=== PATIENT | male | born 1985 | race Caucasian/White ===

== ENCOUNTER 2019-01-13 10:54 | Outpatient (CLI) | payer OTHER ==
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
== END 2019-01-13 10:55 | disposition home or self-care (01) ==
LOC: BICRAD 10:54
PROVIDERS: ATTEND Family Medicine
DX: M79.672 Pain in left foot (principal)

== ENCOUNTER 2019-01-15 16:42 | Inpatient (IN) | payer OTHER ==
[~2019-01-15 16:42] MED LIST: ISOVUE-370 76%-LOCM 1 ML ONE
--- NOTE | 2019-01-15 17:35 | RAD ---
Left knee 4 views HISTORY: Left knee injury. FINDINGS: Joint spaces are preserved. No acute fracture, dislocation, or fluid distention of the supr apatellar bursa. Prominent soft tissue swelling over the anterior aspect of the knee and extending to the anterior portion of the lower thigh. Internal low density has the appearance of mixture of sub cutaneous fat and edema. No soft tissue gas is apparent. IMPRESSION: Prominent soft tissue swelling. No acute osseous abnormalities are demonstrated.
[2019-01-15 17:58] LABS: Hemoglobin 15.8 g/dL (14.0-18.0); Mean Corpuscular HGB CONC 33.3 g/dL (32.0-36.0); Mean Corpuscular Hemoglobin 29.1 pg (27.0-31.0); Mean Corpuscular Volume 87.4 fL (78.0-98.0); Mean Platelet Volume 10.3 fL (7.4-10.4); Platelet Count 209 thou/uL (130-400); RBC Distribution Width 11.4 % (11.5-14.5); Red Blood Cell (RBC) Count 5.42 mill/uL (4.70-6.10); White Blood Cell (WBC) Count 24.5 thou/uL (4.8-10.8)
[2019-01-15] MEDS ORDERED: Acetaminophen 500 MG TAB ONE (18:07)
[2019-01-15 18:18] LABS: Band 9 % (5-11); Lymphocytes 5 % (21-51); MDiff Complete? YES; Metamyelocyte 2 % (0-0); Monocytes 5 % (0-10); Neutrophil 77 % (42-75); Reactive Lymphocytes 2 % (0-10)
[2019-01-15 18:21] LABS: ALT (SGPT) 13 U/L (8-55); AST (SGOT) 10 U/L (5-34); Albumin 3.7 g/dL (3.5-5.0); Alkaline Phosphatase 91 U/L (40-110); Anion Gap 12 mmol/L (10-20); BUN (Urea Nitrogen) 14 mg/dL (8.9-20.6); Bilirubin, Total 1.9 mg/dL (0.2-1.2); Calc. Creatinine Clearance 0 mL/min (70-130); Calcium 9.2 mg/dL (7.8-10.44); Carbon Dioxide 26 mmol/L (22-29); Chloride 98 mmol/L (98-107); Estimated GFR-MDRD Greater than 90; Globulin 3.3 g/dL (2.4-3.5); Glucose 115 mg/dL (70-105); Potassium 3.8 mmol/L (3.5-5.1); Sodium 132 mmol/L (136-145)
[2019-01-15] MEDS ORDERED: Piperacillin/Tazobactam 4.5 GM VIAL ONE (18:21)
--- NOTE | 2019-01-15 19:01 | CT ---
Exam: Left lower extremity CT scan with IV contrast: HISTORY: Marked soft tissue swelling of the leg around the knee. Infection cellulitis FINDINGS: There is very extensive superficial subcutaneous fat stranding and extensive superficial subcutaneous fluid evidence for extensive edema and/or cellulitis. In addition there is also very marked diffuse superficial fasciitis circumferentially involving the leg from the visualized mid thigh throu gh the knee region and into the visualized upper calf regions of the lower leg. There are more focal fluid collections in the superficial infrapatellar region this could represent focal cellulitis and possibly extensive superficial infrapatellar bursitis. No evidence for deep intramuscular abscess or intramuscular abnormal gas or abnormal gas within the more superficial soft tissues. No si gnificant osseous abnormality. No abnormal knee joint effusion. IMPRESSION: Very extensive superficial soft tissue swelling evidence for extensive cellulitis. Very extensive superficial fasciitis involving the lower thigh, knee, and upper calf regions. No evidence for deep intramuscular abscess or abnormal fluid collection. No evidence for abnormal gas within the soft tissues. No significant bony abnormality. Superficial pr epatellar edema or cellulitis and fluid density could represent extensive bursitis as well.
[2019-01-15] MEDS ORDERED: Ketorolac Tromethamine 30 MG/ML VIAL ONE (19:44)
[2019-01-15] MEDS ORDERED: Sodium Chloride 0.9% 1,000 ML IV SCH (20:10)
[2019-01-15] MEDS ORDERED: HYDROcodone/Acetaminophen 5/325 mg Tablet PO PRN ×2 (20:10)
[2019-01-15] MEDS ORDERED: Ondansetron ODT 4 MG TAB SL PRN (20:10)
[2019-01-15] MEDS ORDERED: Acetaminophen 325 MG TAB PO PRN (20:10)
[2019-01-15] MEDS ORDERED: Ondansetron PF 4 MG/2 ML Vial IVP PRN (20:10)
[2019-01-15] MEDS ORDERED: Calcium Carbonate 500 MG ChewTAB PO PRN (20:25)
[2019-01-15 20:30] VITALS: BMI 34.7
[2019-01-15] MEDS ORDERED: Vancomycin HCl 1 GM in Premix Bag 1 BAG IVPB SCH (21:00)
[2019-01-15] MEDS: Famotidine 20 MG TAB PO SCH (21:25)
[2019-01-15] MEDS: Ibuprofen 200 MG TAB PO PRN (21:25)
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
[2019-01-15] MEDS: Piperacillin/Tazobactam 3.375 GM in Sodium Chloride 0.9% 100 ML IVPB SCH (23:26)
[2019-01-16] MEDS ORDERED: Piperacillin/Tazobactam 4.5 GM in Sodium Chloride 0.9% 100 ML IVPB SCH (02:00)
[2019-01-16] MEDS: Vancomycin HCl 1.75 GM in Sodium Chloride 0.9% 500 ML IVPB SCH ×2 (03:27→12:33)
[2019-01-16] MEDS: Piperacillin/Tazobactam 3.375 GM in Sodium Chloride 0.9% 100 ML IVPB SCH ×2 (05:12→11:45)
[2019-01-16] MEDS: HYDROcodone/Acetaminophen 5/325 mg Tablet PO PRN ×2 (05:14→11:43)
[2019-01-16] MEDS: Ibuprofen 200 MG TAB PO PRN ×2 (05:15→20:27)
[2019-01-16 06:43] LABS: Anion Gap 10 mmol/L (10-20); BUN (Urea Nitrogen) 14 mg/dL (8.9-20.6); Calc. Creatinine Clearance 222 mL/min (70-130); Calcium 8.3 mg/dL (7.8-10.44); Carbon Dioxide 23 mmol/L (22-29); Chloride 102 mmol/L (98-107); Estimated GFR-MDRD Greater than 90; Glucose 122 mg/dL (70-105); Potassium 3.9 mmol/L (3.5-5.1); Sodium 131 mmol/L (136-145)
[2019-01-16 06:52] LABS: Band 16 % (5-11); Hemoglobin 13.6 g/dL (14.0-18.0); Lymphocytes 2 % (21-51); MDiff Complete? YES; Mean Corpuscular HGB CONC 33.1 g/dL (32.0-36.0); Mean Corpuscular Volume 87.7 fL (78.0-98.0); Mean Platelet Volume 10.2 fL (7.4-10.4); Monocytes 12 % (0-10); Neutrophil 70 % (42-75); Platelet Count 190 thou/uL (130-400); RBC Distribution Width 11.4 % (11.5-14.5); Red Blood Cell (RBC) Count 4.68 mill/uL (4.70-6.10); White Blood Cell (WBC) Count 18.8 thou/uL (4.8-10.8)
[2019-01-16] MEDS ORDERED: FLU VACC QS2019-20(6MOS UP)/PF 60 MCG/0.5 ML SYRINGE IM ONE (09:00)
[2019-01-16] MEDS: Famotidine 20 MG TAB PO SCH ×2 (09:15→20:28)
[2019-01-16] MEDS: Saccharomyces boulardii 250 MG CAP PO SCH (09:15)
[2019-01-16] MEDS: Enoxaparin Sodium 40 MG/0.4 ML SYRINGE SC SCH (09:16)
[2019-01-16] MEDS: Ondansetron PF 4 MG/2 ML Vial IVP PRN ×2 (09:20→20:32)
[2019-01-16] MEDS: Morphine 4 MG/ML VIAL SLOW IVP PRN ×2 (12:43→19:03)
[2019-01-16] MEDS: HYDROcodone/Acetaminophen 7.5/325 mg Tablet PO PRN ×2 (17:30→22:19)
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
[2019-01-16 19:34] LABS: Vancomycin, Trough 10.2 ug/mL
--- NOTE | 2019-01-16 20:16 | PDOC.HOSPP ---
- Subjective Encounter Date: 01/16/19 Encounter Time: 11:30 Subjective: pt up in bed complains of pain to his left knee. - Objective Vital Signs & Weight: Vital Signs (12 hours) Temp Pulse Resp BP Pulse Ox 01/16/19 16:00 99.8 F H 108 H 20 110/68 95 01/16/19 11:36 97.8 F 97 18 110/76 98 01/16/19 09:25 96 Weight Admit Weight 270 lb 5.92 oz Weight 270 lb 5.92 oz I&O: 01/15/19 01/16/19 01/17/19 06:59 06:59 06:59 Intake Total 1850 2290 Output Total 1325 Balance 1850 965 Result Diagrams: 01/16/19 06:14 01/16/19 06:14 Hospitalist ROS - Review of Systems Respiratory: denies: cough, dry, shortness of breath, hemoptysis, SOB with excertion, pleuritic pain, sputum, wheezing, other Cardiovascular: denies: chest pain, palpitations, orthopnea, paroxysmal noc. dyspnea, edema, light headedness, other Musculoskeletal: reports: leg pain - Medication Medications: Active Medications Generic Name Dose Route Start Last Admin Trade Name Freq PRN Reason Stop Dose Admin Hydrocodone Bitart/Acetaminophen 2 tab 01/16/19 12:15 01/16/19 17:30 [place] 7.5/325 PO 2 tab Q4H PRN Administration Moderate Pain (4-6) Enoxaparin Sodium 40 mg 01/16/19 09:00 01/16/19 09:16 Lovenox SC 40 mg 0900 ROSHAN Administration Famotidine 20 mg 01/15/19 21:00 01/16/19 09:15 Pepcid PO 20 mg BID ROSHAN Administration Ibuprofen 400 mg 01/15/19 20:25 01/16/19 05:15 Motrin PO 400 mg Q4H PRN Administration Fever > 101 Morphine Sulfate 4 mg 01/16/19 12:15 01/16/19 19:03 Morphine SLOW IVP 4 mg Q4H PRN Administration Mild-Moderate Pain (1-5) Ondansetron HCl 4 mg 01/15/19 20:25 01/16/19 09:20 Zofran IVP 4 mg Q6H PRN Administration Nausea/Vomiting Saccharomyces Boulardii 250 mg 01/16/19 09:00 01/16/19 09:15 Florastor PO 250 mg DAILY ROSHAN Administration Sodium Chloride 10 ml 01/16/19 12:18 01/16/19 12:45 Flush - Normal Saline IVF 10 ml PRN PRN Administration Saline Flush - Exam Neck: negative: supple, symmetric, no JVD, no thyromegaly, no lymphadenopathy, no carotid bruit, JVD Heart: negative: RRR, no murmur, no gallops, no rubs, normal peripheral pulses, irregular, diminshed peripheral pulses, murmur present, II/IV, III/IV Respiratory: negative: CTAB, no wheezes, no rales, no ronchi, normal chest expansion, no tachypnea, normal percussion, rales, rhonchi, tachypneic, wheezes Hosp A/P (1) Cellulitis Code(s): L03.90 - CELLULITIS, UNSPECIFIED Status: Acute (2) Fasciitis Code(s): M72.9 - FIBROBLASTIC DISORDER, UNSPECIFIED Status: Acute - Plan will consult ID, will continue broad spectrum abx for now. may need surgical debridement.
[2019-01-17] MEDS: HYDROcodone/Acetaminophen 7.5/325 mg Tablet PO PRN ×2 (04:06→12:19)
[2019-01-17] MEDS: Saccharomyces boulardii 250 MG CAP PO SCH (09:18)
[2019-01-17] MEDS: Enoxaparin Sodium 40 MG/0.4 ML SYRINGE SC SCH (09:18)
[2019-01-17] MEDS: Famotidine 20 MG TAB PO SCH ×2 (09:24→20:35)
--- NOTE | 2019-01-17 12:44 | PDOC.HOSPP ---
- Subjective Encounter Date: 01/17/19 Encounter Time: 11:45 Subjective: pt feels his left leg erythema is worsening. however overall he feels better. - Objective Vital Signs & Weight: Vital Signs (12 hours) Temp Pulse Resp BP Pulse Ox 01/17/19 08:31 99.5 F 92 16 120/89 97 Weight Admit Weight 270 lb 5.92 oz Weight 270 lb 5.92 oz I&O: 01/16/19 01/17/19 01/18/19 06:59 06:59 06:59 Intake Total 1850 4030 Output Total 2900 Balance 1850 1130 Result Diagrams: 01/16/19 06:14 01/16/19 06:14 Hospitalist ROS - Review of Systems Cardiovascular: denies: chest pain, palpitations, orthopnea, paroxysmal noc. dyspnea, edema, light headedness, other Musculoskeletal: reports: other (erythema to left groin and edema) - Medication Medications: Active Medications Generic Name Dose Route Start Last Admin Trade Name Freq PRN Reason Stop Dose Admin Hydrocodone Bitart/Acetaminophen 2 tab 01/16/19 12:15 01/17/19 12:19 [place] 7.5/325 PO 2 tab Q4H PRN Administration Moderate Pain (4-6) Enoxaparin Sodium 40 mg 01/16/19 09:00 01/17/19 09:18 Lovenox SC 40 mg 0900 ROSHAN Administration Famotidine 20 mg 01/15/19 21:00 01/17/19 09:24 Pepcid PO 20 mg BID ROSHAN Administration Vancomycin HCl 2 gm/ Sodium 500 mls @ 250 mls/hr 01/16/19 20:00 01/17/19 04: 08 Chloride IVPB 500 mls 0400,1200,2000 ROSHAN Administration Ibuprofen 400 mg 01/15/19 20:25 01/16/19 20:27 Motrin PO 400 mg Q4H PRN Administration Fever > 101 Morphine Sulfate 4 mg 01/16/19 12:15 01/16/19 19:03 Morphine SLOW IVP 4 mg Q4H PRN Administration Mild-Moderate Pain (1-5) Ondansetron HCl 4 mg 01/15/19 20:25 01/16/19 20:32 Zofran IVP 4 mg Q6H PRN Administration Nausea/Vomiting Saccharomyces Boulardii 250 mg 01/16/19 09:00 01/17/19 09:18 Florastor PO 250 mg DAILY ROSHAN Administration Sertraline HCl 50 mg 01/17/19 09:00 01/17/19 09:19 Zoloft PO 50 mg DAILY ROSHAN Administration Sodium Chloride 10 ml 01/16/19 21:00 01/17/19 12:11 Flush - Normal Saline IVF Not Given Q12HR ROSHAN Sodium Chloride 10 ml 01/16/19 12:18 01/16/19 12:45 Flush - Normal Saline IVF 10 ml PRN PRN Administration Saline Flush - Exam Neck: negative: supple, symmetric, no JVD, no thyromegaly, no lymphadenopathy, no carotid bruit, JVD Heart: negative: RRR, no murmur, no gallops, no rubs, normal peripheral pulses, irregular, diminshed peripheral pulses, murmur present, II/IV, III/IV Respiratory: negative: CTAB, no wheezes, no rales, no ronchi, normal chest expansion, no tachypnea, normal percussion, rales, rhonchi, tachypneic, wheezes Extremities: 1+ LE edema Extremities - other findings: mild eryhtema to his left groin Hosp A/P (1) Cellulitis Code(s): L03.90 - CELLULITIS, UNSPECIFIED Status: Acute (2) Fasciitis Code(s): M72.9 - FIBROBLASTIC DISORDER, UNSPECIFIED Status: Acute - Plan will consult ID, will continue broad spectrum abx for now. may need surgical debridement. 01/17 pt does have significant edema to his left thigh but his erythema has improved. I did advise him to elevate his left leg higher. He is on broad spectrum abx. will consider testing if his left leg swelling and erythema does not improve.
--- NOTE | 2019-01-17 13:14 | PRG ---
DATE OF SERVICE: 01/17/2019 SUBJECTIVE: Still with quite a bit of pain, and redness is worsened in the prepatellar region. Had some difficulty urination yesterday. No respiratory symptoms or abdominal pain. OBJECTIVE: VITAL SIGNS: T-max 99.8. Other vital signs are normal. GENERAL: Awake, alert, oriented. LUNGS: Clear. HEART: S1 and S2. Regular rate. EXTREMITIES: Left leg with still persistent erythema in the prepatellar region. Swelling. LABORATORY DATA: White cell count is at 18.8, hemoglobin 13.6, platelets 190. Creatinine 0.83. Microbiology with MRSA. ASSESSMENT AND DISCUSSION: Abscess and cellulitis at the left prepatellar area, likely prepatellar bursitis. We will consult Surgery. Job ID: [id number]
[2019-01-17 14:04] LABS: Hemoglobin 12.4 g/dL (14.0-18.0); Mean Corpuscular HGB CONC 33.5 g/dL (32.0-36.0); Mean Corpuscular Hemoglobin 29.6 pg (27.0-31.0); Mean Corpuscular Volume 88.2 fL (78.0-98.0); Platelet Count 214 thou/uL (130-400); RBC Distribution Width 11.3 % (11.5-14.5); Red Blood Cell (RBC) Count 4.19 mill/uL (4.70-6.10); White Blood Cell (WBC) Count 16.1 thou/uL (4.8-10.8)
[2019-01-17 14:30] LABS: Band 10 % (5-11); Lymphocytes 4 % (21-51); MDiff Complete? YES; Monocytes 3 % (0-10); Neutrophil 83 % (42-75); Platelet Morphology Comment Appears Adequate
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
[2019-01-17] MEDS: Sodium Chloride 0.9% 1,000 ML IV SCH ×2 (15:46→20:39)
[2019-01-17] MEDS ORDERED: Ondansetron PF 4 MG/2 ML Vial ONE (18:00)
[2019-01-17] MEDS ORDERED: Lidocaine 1% PF 5 ML VIAL ONE (18:00)
[2019-01-17] MEDS ORDERED: Ketorolac Tromethamine 30 MG/ML VIAL ONE (18:00)
[2019-01-17] MEDS ORDERED: Dexamethasone 20 MG/5 ML VIAL ONE (18:00)
[2019-01-17] MEDS ORDERED: PROPOFOL 200 MG/20 ML VIAL ONE (18:00)
[2019-01-17] MEDS ORDERED: HYDROmorphone 0.5 MG/0.5 ML SYRINGE ONE (18:14)
[2019-01-17] MEDS ORDERED: HYDROmorphone 2 MG/ML VIAL SLOW IVP PRN (19:03)
[2019-01-17] MEDS ORDERED: Promethazine HCl 25 MG/ML VIAL SLOW IVP PRN (19:03)
[2019-01-17] MEDS ORDERED: Ondansetron HCl/PF 4 MG/2 ML Vial IVP PRN (19:03)
[2019-01-17] MEDS ORDERED: Promethazine HCl 25 MG/ML VIAL IM PRN (19:03)
[2019-01-17] MEDS ORDERED: PACU-Morphine 4MG/ML VIAL SLOW IVP PRN (19:03)
[2019-01-17] MEDS ORDERED: Fentanyl 100 MCG/2 ML VIAL SLOW IVP PRN (19:14)
[2019-01-17 20:08] LABS: Vancomycin, Trough 13.4 ug/mL
[2019-01-17] MEDS: HYDROcodone/Acetaminophen 10/325 mg Tablet PO PRN (20:33)
[2019-01-18 08:15] LABS: #Lymphocytes 0.6 thou/uL (1.20-3.40); #Monocytes 0.9 thou/uL (0.11-0.59); #Neutrophils 16.3 thou/uL (1.40-6.50); %Basophils 0.1 % (0.0-1.0); %Eosinophils 0.1 % (0.0-10.0); %Lymphocytes 3.3 % (21.0-51.0); %Monocytes 4.8 % (0.0-10.0); %Neutrophils 91.7 % (42.0-75.0); Hemoglobin 11.9 g/dL (14.0-18.0); Mean Corpuscular HGB CONC 33.2 g/dL (32.0-36.0); Mean Corpuscular Hemoglobin 29.4 pg (27.0-31.0); Mean Corpuscular Volume 88.5 fL (78.0-98.0); Mean Platelet Volume 9.9 fL (7.4-10.4); Platelet Count 247 thou/uL (130-400); RBC Distribution Width 11.4 % (11.5-14.5); Red Blood Cell (RBC) Count 4.05 mill/uL (4.70-6.10); White Blood Cell (WBC) Count 17.7 thou/uL (4.8-10.8)
[2019-01-18 08:29] LABS: Anion Gap 9 mmol/L (10-20); BUN (Urea Nitrogen) 14 mg/dL (8.9-20.6); Calc. Creatinine Clearance 252 mL/min (70-130); Calcium 8.5 mg/dL (7.8-10.44); Carbon Dioxide 28 mmol/L (22-29); Chloride 102 mmol/L (98-107); Estimated GFR-MDRD Greater than 90; Glucose 135 mg/dL (70-105); Potassium 3.7 mmol/L (3.5-5.1); Sodium 135 mmol/L (136-145)
[2019-01-18] MEDS: Morphine 4 MG/ML VIAL SLOW IVP PRN (08:45)
[2019-01-18] MEDS: HYDROcodone/Acetaminophen 10/325 mg Tablet PO PRN (09:46)
[2019-01-18] MEDS: Saccharomyces boulardii 250 MG CAP PO SCH (09:49)
[2019-01-18] MEDS: Famotidine 20 MG TAB PO SCH ×2 (09:49→21:42)
[2019-01-18] MEDS: Enoxaparin Sodium 40 MG/0.4 ML SYRINGE SC SCH (09:50)
[2019-01-18] MEDS ORDERED: LIDOCAINE HCL 4% Topical Sol (4 ML SOLN.PK.G.) TP PRN (10:09)
--- NOTE | 2019-01-18 10:40 | PRG ---
DATE OF SERVICE: 01/18/2019 SUBJECTIVE: Albino is a 33-year-old male, who is postop day #1 from a left knee septic prepatellar bursitis. Apparently, he has MRSA and Dr. Cohn removed approximately 100 mL of the patient's prepatellar bursa. He feels a little better, but he feels as though the erythema has advanced slightly. OBJECTIVE: VITAL SIGNS: Temperature 98.4, pulse 92, respiratory rate 16 and nonlabored, O2 saturation 97% on room air, and blood pressure 129/72. GENERAL: He is alert, appropriate, responsive with examiner. EXTREMITIES: Visual inspection of the left lower extremity demonstrates him to have erythema extending up on the medial mid thigh up towards the groin and also dorsal mid thigh and blanches with pressure. He has some swelling distal to his wound, but there is no strike through. Wound Care is placed a VAC over the bursa. IMPRESSION: 1. Left knee methicillin-resistant Staphylococcus aureus septic prepatellar bursitis, status post incision and drainage just over 12 hours. 2. Persistent cellulitis, left thigh. PLAN: 1. We will add some topical lidocaine to the orders for wound care. 2. Demarcation of the erythema, so we can re-evaluate in 24 hours. 3. Continue IV antibiotics per Dr. Carter and re-evaluate tomorrow morning. Give consideration to reexploration if the erythema is not resolving or responding to antibiotics. Job ID: [id number]
--- NOTE | 2019-01-18 11:05 | OP ---
DATE OF PROCEDURE: 01/17/2019 PREOPERATIVE DIAGNOSIS: Prepatellar bursitis, septic, left knee. POSTOPERATIVE DIAGNOSIS: Prepatellar bursitis, septic, left knee. PROCEDURE PERFORMED: Irrigation and debridement of left septic prepatellar bursa. ANESTHESIA: General. SPECIMENS: Culture. DRAINS: None. COMPLICATIONS: None. BLOOD LOSS: About 20. DESCRIPTION OF PROCEDURE: The patient was taken to the operating room, where general anesthesia was induced. The left leg was prepped and draped in usual sterile fashion. He was already on scheduled vancomycin preoperatively. I made a longitudinal incision through the abrasions and poor skin on the anterior aspect of the knee. This was an obvious site of entry for the infection. A geyser of pus erupted, probably about 200 mL of very thick pus. It appeared to be probably an infected hematoma of the bursa. I then probed the bursa and broke up loculations, debrided the tissue and excised the bursal tissue, and used pulsatile lavage irrigation to further clean the bursa. The bursa was then packed with a Kerlix roll. POSTOPERATIVE PLAN: He is to continue vancomycin, pending cultures and a wound VAC will be applied by Wound Care tomorrow. Job ID: [id number]
[2019-01-18] MEDS ORDERED: Polyethylene Glycol 3350 17 GM Packet PO PRN (11:24)
[2019-01-18] MEDS ORDERED: Milk Of Magnesia 30 ML UDCUP PO PRN (11:25)
--- NOTE | 2019-01-18 14:54 | PRG ---
DATE OF SERVICE: 01/18/2019 SUBJECTIVE: The patient had I and D by Dr. Cohn. 200 mL of purulent exudate retrieved from the site. The patient has a negative pressure dressing at this time. He already feels improvement in the pain and swelling. He denies any headaches. No shortness of breath or chest pain. No abdominal pain or diarrhea. No genitourinary symptoms. No joint symptoms outside the area of involvement. OBJECTIVE: VITAL SIGNS: Normal. GENERAL: The patient has negative pressure dressing in the left prepatellar region. The erythema has receded already. LUNGS: Clear. HEART: S1, S2, regular rate. ABDOMEN: Soft, not distended, nontender. No ascites. No bladder distention. NEUROLOGIC: Nonfocal. LABORATORY DATA: White cell count is 17.7, hemoglobin 11, platelets 247. Sodium 135, creatinine 0.73. Microbiology with MRSA and patient is on vancomycin. ASSESSMENT: Abscess, prepatellar region, status post debridement by Dr. Cohn, has negative pressure dressing and we will wait on final progress of the lesion before we decide on IV versus oral antimicrobial therapy for discharge planning. Since he has not been documented to have been bacteremic, will be eligible for oral antimicrobial therapy for discharge planning depending on progress. Job ID: [id number]
[2019-01-18] MEDS: Sodium Chloride 0.9% 1,000 ML IV SCH (16:48)
[2019-01-18 19:45] LABS: Vancomycin, Trough 13.4 ug/mL
[2019-01-18] MEDS: Senokot S 8.6-50 MG TAB PO SCH (21:42)
[2019-01-19] MEDS: Sodium Chloride 0.9% 1,000 ML IV SCH ×3 (04:57→08:27)
--- NOTE | 2019-01-19 07:27 | PDOC.HOSPP ---
- Subjective Encounter Date: 01/18/19 Encounter Time: 09:30 Subjective: Patient seen and examined for L knee prepatellar abscess with cellulitis. Pain controlled. Feeling better. No other complaints. No overnight events - Objective Vital Signs & Weight: Vital Signs (12 hours) Temp Pulse Resp BP Pulse Ox 01/18/19 20:00 98.5 F 99 20 126/80 94 L 01/18/19 19:42 94 L Weight Admit Weight 270 lb 5.92 oz Weight 270 lb 5.92 oz I&O: 01/18/19 01/19/19 01/20/19 06:59 06:59 06:59 Intake Total 2220 5620 Output Total 1650 3800 Balance 570 1820 Result Diagrams: 01/18/19 07:58 01/18/19 07:58 Additional Labs: Microbiology 01/15/19 22:20 Knee - Wound Bacterial Culture - Final Methicillin resistant S.aureus 01/17/19 18:58 Knee Bacterial Culture - Preliminary 01/17/19 18:58 Knee Anaerobic Culture - Preliminary 01/15/19 17:40 Venous blood - Left Arm Blood Culture - Preliminary NO GROWTH AT 48 HOURS 01/15/19 17:31 Venous blood - Right Arm Blood Culture - Preliminary NO GROWTH AT 48 HOURS Hospitalist ROS - Review of Systems Respiratory: denies: cough, dry, shortness of breath, hemoptysis, SOB with excertion, pleuritic pain, sputum, wheezing, other Cardiovascular: denies: chest pain, palpitations, orthopnea, paroxysmal noc. dyspnea, edema, light headedness, other - Medication Medications: Active Medications Generic Name Dose Route Start Last Admin Trade Name Freq PRN Reason Stop Dose Admin Hydrocodone Bitart/Acetaminophen 2 tab 01/17/19 19:14 01/18/19 09:46 [place] 10/325 PO 2 tab Q4H PRN Administration Severe Pain (7-10) Enoxaparin Sodium 40 mg 01/16/19 09:00 01/18/19 09:50 Lovenox SC 40 mg 0900 ROSHAN Administration Famotidine 20 mg 01/15/19 21:00 01/18/19 21:42 Pepcid PO 20 mg BID ROSHAN Administration Vancomycin HCl 2 gm/ Sodium 500 mls @ 250 mls/hr 01/16/19 20:00 01/19/19 04: 58 Chloride IVPB 500 mls 0400,1200,2000 ROSHAN Administration Sodium Chloride 1,000 mls @ 100 mls/hr 01/17/19 13:45 01/19/19 04:58 Normal Saline 0.9% IV 1,000 mls .Q10H ROSHAN Administration Ibuprofen 400 mg 01/15/19 20:25 01/16/19 20:27 Motrin PO 400 mg Q4H PRN Administration Fever > 101 Morphine Sulfate 4 mg 01/16/19 12:15 01/18/19 08:45 Morphine SLOW IVP 4 mg Q4H PRN Administration Mild-Moderate Pain (1-5) Ondansetron HCl 4 mg 01/15/19 20:25 01/16/19 20:32 Zofran IVP 4 mg Q6H PRN Administration Nausea/Vomiting Polyethylene Glycol 17 gm 01/18/19 11:24 01/18/19 13:29 Miralax PO 17 gm DAILY PRN Administration Constipation Saccharomyces Boulardii 250 mg 01/16/19 09:00 01/18/19 09:49 Florastor PO 250 mg DAILY ROSHAN Administration Senna/Docusate Sodium 2 tab 01/18/19 21:00 01/18/19 21:42 Senokot S PO 2 tab BID ROSHAN Administration Sertraline HCl 50 mg 01/17/19 09:00 01/18/19 09:49 Zoloft PO 50 mg DAILY ROSHAN Administration Sodium Chloride 10 ml 01/16/19 21:00 01/18/19 21:42 Flush - Normal Saline IVF Not Given Q12HR ROSHAN Sodium Chloride 10 ml 01/16/19 12:18 01/16/19 12:45 Flush - Normal Saline IVF 10 ml PRN PRN Administration Saline Flush - Exam General Appearance: NAD Heart: RRR, no gallops Respiratory: CTAB, no rales Gastrointestinal: soft, non-distended Extremities: no edema Hosp A/P - Plan Sepsis due to L knee prepatellar abscess with cellulitis (MRSA +) Hyponatremia Abn LFTs ?etio Obesity BMI 34.7 Anxiety PLAN: Cont IV Vancomycin Cont wound care Ambulate Cont other meds Labs Q48hr
[2019-01-19] MEDS: Senokot S 8.6-50 MG TAB PO SCH (08:26)
[2019-01-19] MEDS: Enoxaparin Sodium 40 MG/0.4 ML SYRINGE SC SCH (08:26)
[2019-01-19] MEDS: Saccharomyces boulardii 250 MG CAP PO SCH (08:26)
[2019-01-19] MEDS ORDERED: Senokot S 8.6-50 MG TAB PO PRN (12:45)
--- NOTE | 2019-01-19 12:46 | PDOC.HOSPP ---
- Subjective Encounter Date: 01/19/19 Encounter Time: 12:45 Subjective: Patient seen and examined for Sepsis. Pain controlled. Had BM. No new complaints. No overnight events - Objective Vital Signs & Weight: Vital Signs (12 hours) Temp Pulse Resp BP Pulse Ox 01/19/19 12:00 97.8 F 88 18 137/87 99 01/19/19 08:00 98.2 F 96 18 142/84 H 99 Weight Admit Weight 270 lb 5.92 oz Weight 270 lb 5.92 oz I&O: 01/18/19 01/19/19 01/20/19 06:59 06:59 06:59 Intake Total 2220 5620 360 Output Total 1650 3800 Balance 570 1820 360 Result Diagrams: 01/18/19 07:58 01/18/19 07:58 Hospitalist ROS - Review of Systems Respiratory: denies: cough, dry, shortness of breath, hemoptysis, SOB with excertion, pleuritic pain, sputum, wheezing, other Cardiovascular: denies: chest pain, palpitations, orthopnea, paroxysmal noc. dyspnea, edema, light headedness, other - Medication Medications: Active Medications Generic Name Dose Route Start Last Admin Trade Name Freq PRN Reason Stop Dose Admin Hydrocodone Bitart/Acetaminophen 2 tab 01/17/19 19:14 01/18/19 09:46 [place] 10/325 PO 2 tab Q4H PRN Administration Severe Pain (7-10) Enoxaparin Sodium 40 mg 01/16/19 09:00 01/19/19 08:26 Lovenox SC 40 mg 0900 ROSHAN Administration Vancomycin HCl 2 gm/ Sodium 500 mls @ 250 mls/hr 01/16/19 20:00 01/19/19 12: 27 Chloride IVPB 500 mls 0400,1200,2000 ROSHAN Administration Sodium Chloride 1,000 mls @ 50 mls/hr 01/19/19 07:30 01/19/19 08:27 Normal Saline 0.9% IV Not Given .Q20H ROSHAN Ibuprofen 400 mg 01/15/19 20:25 01/16/19 20:27 Motrin PO 400 mg Q4H PRN Administration Fever > 101 Morphine Sulfate 4 mg 01/16/19 12:15 01/18/19 08:45 Morphine SLOW IVP 4 mg Q4H PRN Administration Mild-Moderate Pain (1-5) Ondansetron HCl 4 mg 01/15/19 20:25 01/16/19 20:32 Zofran IVP 4 mg Q6H PRN Administration Nausea/Vomiting Polyethylene Glycol 17 gm 01/18/19 11:24 01/18/19 13:29 Miralax PO 17 gm DAILY PRN Administration Constipation Saccharomyces Boulardii 250 mg 01/16/19 09:00 01/19/19 08:26 Florastor PO 250 mg DAILY ROSHAN Administration Senna/Docusate Sodium 2 tab 01/18/19 21:00 01/19/19 08:26 Senokot S PO 2 tab BID ROSHAN Administration Sertraline HCl 50 mg 01/17/19 09:00 01/19/19 08:26 Zoloft PO 50 mg DAILY ROSHAN Administration Sodium Chloride 10 ml 01/16/19 21:00 01/19/19 08:37 Flush - Normal Saline IVF Not Given Q12HR ROSHAN Sodium Chloride 10 ml 01/16/19 12:18 01/16/19 12:45 Flush - Normal Saline IVF 10 ml PRN PRN Administration Saline Flush - Exam General Appearance: NAD Heart: RRR, no gallops, no rubs Respiratory: CTAB, no wheezes, no ronchi Gastrointestinal: soft, non-tender, non-distended, normal bowel sounds Extremities: no edema Extremities - other findings: wound vac + Hosp A/P - Plan DVT proph w/SCDs Sepsis due to L knee prepatellar abscess with cellulitis (MRSA +) s/p drainage Hyponatremia Abn LFTs ?etio Obesity BMI 34.7 Anxiety PLAN: Cont IV Vancomycin Monitor Vancomycin level Cont wound care Ambulate Cont other meds DC Lovenox - Patient ambulating AM labs
--- NOTE | 2019-01-19 16:43 | PRG ---
DATE OF SERVICE: 01/19/2019 SUBJECTIVE: Feeling better. Less pain in left lower extremity. No respiratory symptoms, abdominal pain, or diarrhea. No genitourinary symptoms. OBJECTIVE: VITAL SIGNS: Normal. LUNGS: Clear. HEART: S1 and S2, regular rate. ABDOMEN: Soft and not distended. EXTREMITIES: Left thigh is still swollen with edema, but less than before. Not much erythema noted anymore. Negative pressure dressing in place. LABORATORY DATA: White cell count 17.7, hemoglobin 11, platelets 247; this is from yesterday. Microbiology with MRSA. The organism is susceptible to clindamycin, tetracycline, and rifampin. ASSESSMENT AND DISCUSSION: Prepatellar abscess, status post incision and drainage, negative blood cultures. Plan discharge on clindamycin 300 mg four times daily for probably another 10 days approximately. Follow up in the clinic. Job ID: [id number]
[2019-01-19] MEDS: Acetaminophen 325 MG TAB PO PRN (20:35)
[2019-01-20] MEDS: Sodium Chloride 0.9% 1,000 ML IV SCH (04:03)
[2019-01-20 06:11] LABS: ALT (SGPT) 60 U/L (8-55); AST (SGOT) 41 U/L (5-34); Albumin 2.9 g/dL (3.5-5.0); Alkaline Phosphatase 135 U/L (40-110); Anion Gap 12 mmol/L (10-20); BUN (Urea Nitrogen) 9 mg/dL (8.9-20.6); Bilirubin, Total 0.5 mg/dL (0.2-1.2); Calc. Creatinine Clearance 259 mL/min (70-130); Calcium 8.5 mg/dL (7.8-10.44); Carbon Dioxide 25 mmol/L (22-29); Chloride 104 mmol/L (98-107); Estimated GFR-MDRD Greater than 90; Glucose 94 mg/dL (70-105); Potassium 3.7 mmol/L (3.5-5.1); Protein, Total 5.9 g/dL (6.0-8.3); Sodium 137 mmol/L (136-145)
[2019-01-20 06:18] LABS: Band 5 % (5-11); Eosinophils 3 % (0-10); Hemoglobin 11.6 g/dL (14.0-18.0); Lymphocytes 14 % (21-51); MDiff Complete? YES; Mean Corpuscular HGB CONC 32.8 g/dL (32.0-36.0); Mean Corpuscular Hemoglobin 28.8 pg (27.0-31.0); Mean Platelet Volume 8.7 fL (7.4-10.4); Monocytes 12 % (0-10); Neutrophil 66 % (42-75); Platelet Count 329 thou/uL (130-400); RBC Distribution Width 11.5 % (11.5-14.5); Red Blood Cell (RBC) Count 4.04 mill/uL (4.70-6.10); White Blood Cell (WBC) Count 14.4 thou/uL (4.8-10.8)
[2019-01-20] MEDS: Saccharomyces boulardii 250 MG CAP PO SCH (08:24)
[2019-01-20] MEDS: Morphine 4 MG/ML VIAL SLOW IVP PRN (11:53)
--- NOTE | 2019-01-20 13:58 | PRG ---
DATE OF SERVICE: 01/20/2019 SUBJECTIVE: Albino is a 33-year-old male, who is postoperative day 3 from a left knee prepatellar septic bursitis irrigation and debridement. He is slowly, but surely improving. OBJECTIVE: VITAL SIGNS: Temperature 97.4, pulse 80, respiratory rate 20, blood pressure 127/76. GENERAL: He is alert and oriented to person, place, time, and situation. EXTREMITIES: Visual inspection of the left lower extremity demonstrates him to have some edema around the buttocks with some mild erythema, but it is blanchable and is nontender. The erythema of the left thigh is receding quite nicely, as is the edema and swelling of the left leg. His wound VAC has been changed. LABORATORY DATA: White blood cell count is 14.4. Hematology demonstrated methicillin-resistant Staphylococcus aureus. IMPRESSION: Postoperative day 3, incision, drainage, and washout, left knee prepatellar septic bursitis and cellulitis secondary to methicillin-resistant Staphylococcus aureus. PLAN: Antibiotic treatment per Dr. Carter. Continue wound VAC. No indication for repeat I and D at this point since he is slowly improving. However, I did advise him that getting up, moving around, and spending more time out of bed would help with his edema in the left buttock. We will recheck tomorrow. Job ID: [id number]
--- NOTE | 2019-01-20 14:33 | PRG ---
DATE OF SERVICE: 01/20/2019 SUBJECTIVE: Still slow improvement, but steady. No respiratory symptoms. Appetite is improved. No abdominal pain. No diarrhea. OBJECTIVE: VITAL SIGNS: Temperature normal. Other vital signs are within normal limits. GENERAL: Awake, alert, and oriented. LUNGS: Clear. HEART: S1 and S2, regular rate. ABDOMEN: Soft. Not distended or tender. No ascites. No bladder distention. EXTREMITIES: Left prepatellar skin region is markedly improved. Still quite a bit of edema around the negative pressure dressing site. LABORATORY DATA: White cell count 14.4, hemoglobin 11.6, platelets 229 with a creatinine 0.71. AST 41, ALT 60, and alkaline phosphatase 135. MRSA retrieved from culture. ASSESSMENT AND DISCUSSION: Prepatellar bursitis, status post I and D with slow improvement. Continue vancomycin IV. Maybe another day and be able to go home on oral clindamycin. Job ID: [id number]
[2019-01-20 20:14] LABS: Vancomycin, Trough 13.9 ug/mL
[2019-01-20] MEDS: Acetaminophen 325 MG TAB PO PRN (20:34)
--- NOTE | 2019-01-20 22:53 | PDOC.HOSPP ---
- Subjective Encounter Date: 01/20/19 Encounter Time: 12:00 Subjective: Patient seen and examined for bursitis. Pain controlled. No new complaints. No overnight events - Objective Vital Signs & Weight: Vital Signs (12 hours) Temp Pulse Resp BP Pulse Ox 01/20/19 20:00 98.2 F 76 16 145/93 H 97 Weight Admit Weight 270 lb 5.92 oz Weight 270 lb 5.92 oz I&O: 01/19/19 01/20/19 01/21/19 06:59 06:59 06:59 Intake Total 5620 3230 Output Total 3800 1100 Balance 1820 2130 Result Diagrams: 01/20/19 05:33 01/20/19 05:33 Hospitalist ROS - Review of Systems Cardiovascular: denies: chest pain, palpitations, orthopnea, paroxysmal noc. dyspnea, edema, light headedness, other Gastrointestinal: denies: nausea, vomiting, abdominal pain, diarrhea, constipation, melena, hematochezia, other - Medication Medications: Active Medications Generic Name Dose Route Start Last Admin Trade Name Freq PRN Reason Stop Dose Admin Acetaminophen 650 mg 01/15/19 20:25 01/20/19 20:34 Tylenol PO 650 mg Q4H PRN Administration Headache/Fever/Mild Pain (1-3) Hydrocodone Bitart/Acetaminophen 2 tab 01/17/19 19:14 01/18/19 09:46 [place] 10/325 PO 2 tab Q4H PRN Administration Severe Pain (7-10) Vancomycin HCl 2 gm/ Sodium 500 mls @ 250 mls/hr 01/16/19 20:00 01/20/19 20: 32 Chloride IVPB 500 mls 0400,1200,2000 ROSHAN Administration Ibuprofen 400 mg 01/15/19 20:25 01/16/19 20:27 Motrin PO 400 mg Q4H PRN Administration Fever > 101 Morphine Sulfate 4 mg 01/16/19 12:15 01/20/19 11:53 Morphine SLOW IVP 4 mg Q4H PRN Administration Mild-Moderate Pain (1-5) Ondansetron HCl 4 mg 01/15/19 20:25 01/16/19 20:32 Zofran IVP 4 mg Q6H PRN Administration Nausea/Vomiting Polyethylene Glycol 17 gm 01/18/19 11:24 01/18/19 13:29 Miralax PO 17 gm DAILY PRN Administration Constipation Saccharomyces Boulardii 250 mg 01/16/19 09:00 01/20/19 08:24 Florastor PO 250 mg DAILY ROSHAN Administration Sertraline HCl 50 mg 01/17/19 09:00 01/20/19 08:24 Zoloft PO 50 mg DAILY ROSHAN Administration Sodium Chloride 10 ml 01/16/19 21:00 01/20/19 20:33 Flush - Normal Saline IVF 10 ml Q12HR ROSHAN Administration Sodium Chloride 10 ml 01/16/19 12:18 01/16/19 12:45 Flush - Normal Saline IVF 10 ml PRN PRN Administration Saline Flush - Exam General Appearance: NAD Extremities: no edema Extremities - other findings: wound vac+ Psychiatric: normal affect, A&O x 3 Hosp A/P - Plan DVT proph w/SCDs Sepsis due to L knee prepatellar abscess with cellulitis (MRSA +) s/p drainage Hyponatremia Abn LFTs ?etio Obesity BMI 34.7 Anxiety PLAN: Cont IV Vancomycin with Vancomycin level monitoring Cont wound care/wound vac Cont other meds AM labs
[2019-01-21 06:48] LABS: Hemoglobin 12.5 g/dL (14.0-18.0); Mean Corpuscular HGB CONC 33.5 g/dL (32.0-36.0); Mean Corpuscular Hemoglobin 29.4 pg (27.0-31.0); Mean Corpuscular Volume 87.8 fL (78.0-98.0); Mean Platelet Volume 8.5 fL (7.4-10.4); Platelet Count 389 thou/uL (130-400); RBC Distribution Width 11.4 % (11.5-14.5); Red Blood Cell (RBC) Count 4.25 mill/uL (4.70-6.10); White Blood Cell (WBC) Count 15.6 thou/uL (4.8-10.8)
[2019-01-21] MEDS: Acetaminophen 325 MG TAB PO PRN ×3 (07:17→20:03)
[2019-01-21 07:51] LABS: Band 3 % (5-11); Eosinophils 4 % (0-10); Lymphocytes 16 % (21-51); MDiff Complete? YES; Metamyelocyte 1 % (0-0); Monocytes 11 % (0-10); Myelocyte 2 % (0-0); Neutrophil 61 % (42-75); RBC Morphology Normal
[2019-01-21] MEDS: Saccharomyces boulardii 250 MG CAP PO SCH (09:13)
--- NOTE | 2019-01-21 10:02 | PRG ---
DATE OF SERVICE: 01/21/2019 SUBJECTIVE: The patient is seen and examined at bedside. He has some complaints about diarrhea x2, watery. No abdominal pain. Some discomfort in the left knee area, but otherwise he is doing good. His appetite is fair. OBJECTIVE: VITAL SIGNS: Blood pressure is 154/93, pulse is 76, temperature is 97.6, maximal temperature is 98.5, respiratory rate is 18, and O2 saturation is 96% on room air. HEENT: His head is atraumatic and normocephalic. Eyes are PERRLA. Sclerae are nonicteric. Oral mucosa is moist. NECK: Supple. LUNGS: Clear. HEART: S1 and S2, normal. ABDOMEN: Soft, nontender, and nondistended. EXTREMITIES: Left knee is wrapped. There is some 1+ peripheral edema around the left knee area. The wound VAC is in place. NEUROLOGICAL: He is alert and oriented x4. There is no any motor or sensory deficits. LABORATORY DATA: White count of 15.6, hemoglobin of 12.5, hematocrit 37.3, and platelet count is 389,000. IMPRESSION: 1. Sepsis due to left knee prepatellar abscess with cellulitis, positive methicillin-resistant Staphylococcus aureus, status post drainage. 2. Hyponatremia. 3. Anxiety. 4. Obesity. 5. Elevated LFTs of unclear etiology most likely related to his obesity. PLAN: Since his white count is still not trending down, I recommend to continue his IV antibiotics in the hospital and check his stool for C. difficile toxins and antigen to rule out Clostridium difficile colitis and continue probiotics. Continue wound care. Job ID: [id number]
[2019-01-21 19:31] LABS: Vancomycin, Trough 18.5 ug/mL
[2019-01-22] MEDS: Acetaminophen 325 MG TAB PO PRN ×4 (03:55→19:42)
[2019-01-22] MEDS: Saccharomyces boulardii 250 MG CAP PO SCH (08:11)
[2019-01-22 09:17] LABS: Hemoglobin 13.2 g/dL (14.0-18.0); Mean Corpuscular HGB CONC 33.1 g/dL (32.0-36.0); Mean Corpuscular Volume 87.6 fL (78.0-98.0); Mean Platelet Volume 8.3 fL (7.4-10.4); Platelet Count 429 thou/uL (130-400); RBC Distribution Width 11.7 % (11.5-14.5); Red Blood Cell (RBC) Count 4.54 mill/uL (4.70-6.10); White Blood Cell (WBC) Count 15.7 thou/uL (4.8-10.8)
[2019-01-22 09:40] LABS: Band 5 % (5-11); Eosinophils 5 % (0-10); Lymphocytes 12 % (21-51); MDiff Complete? YES; Metamyelocyte 6 % (0-0); Monocytes 7 % (0-10); Myelocyte 5 % (0-0); Neutrophil 59 % (42-75); Platelet Morphology Comment Appears Increased; Promyelocytes 1 % (0-0); RBC Morphology Normal
[2019-01-22] MEDS: Morphine 4 MG/ML VIAL SLOW IVP PRN (11:48)
--- NOTE | 2019-01-22 12:46 | PRG ---
DATE OF SERVICE: 01/22/2019 SUBJECTIVE: The patient is seen and examined at the bedside. He does not have much complaints to offer. His dressing was just changed by the wound care team. OBJECTIVE: VITAL SIGNS: Blood pressure is 147/93, pulse is 67, respiratory rate is 18, O2 saturation is 97% on room air, and temperature is 97.8. Temperature maximal is 98.5. HEENT: His head is atraumatic, normocephalic. Eyes are PERRLA. Sclerae are nonicteric. Oral mucosa is moist. NECK: Supple. LUNGS: Clear. HEART: S1, S2 normal. ABDOMEN: Soft, nontender, nondistended. EXTREMITIES: Left knee area with wound VAC dressing. NEUROLOGICAL: He is alert and oriented x4. There are no any motor deficits. LABORATORY DATA: Labs showed white count of 15.7, hemoglobin of 13.2, platelet count is 429,000, and hematocrit is 39.8. Vancomycin trough is 18.5. Microbiology, no new findings. IMPRESSION: 1. Sepsis due to left knee prepatellar abscess with cellulitis positive for methicillin-resistant Staphylococcus aureus, status post drainage. 2. Hyponatremia, improved. 3. Anxiety, chronic, stable. 4. Obesity, chronic, stable. 5. Elevated LFTs, most likely related to his obesity secondary to sepsis. DISCUSSION: Case was discussed with Dr. Carter, who recommends to obtain MRI of the left lower extremity to rule out any pus collection since his white count is still up to 16,000 for the last few days. For now, we will continue his vancomycin and p.r.n. pain medications. Job ID: [id number]
--- NOTE | 2019-01-22 17:23 | MRI ---
LEFT LOWER EXTREMITY MRI WITH AND WITHOUT IV CONTRAST; 01/22/19 HISTORY: Infection, prior abscess drainage five days ago with continued elevated white blood cell count, shaheen rn for abscess. Multiplanar, multisequence MRI examination of the lower extremity is performed. Open wound is noted i n the superficial soft tissues medial to the patellar tendon and overlying the medial patellar retina cular region. There are some persistent small very irregularly shaped fluid collections noted in the subcutaneous tissue including some irregular anterior superficial prepatellar and superficial infrapa tellar fluid collections noted up to 1.4 cm in AP dimension and 4.8 cm transversely. There are also s ome multilobulated very small poorly defined fluid collections in the lateral subcutaneous soft tissu es overlying the lateral patellar retinacular region. IMPRESSION: Very extensive persistent subcutaneous edema and cellulitis with multiple small poorly defined fluid collections noted anteriorly over the superficial prepatellar and infrapatellar regions as well as la terally overlying the lateral patellar retinacular region. Open surgical wound overlying the medial a nterior patellar retinacular region. There is evidence for some peripheral persistent myositis involv ing the vastus medialis and vastus lateralis muscles as well as superficial fasciitis. POS: TPC
[2019-01-23 06:21] LABS: Hemoglobin 13.1 g/dL (14.0-18.0); Mean Corpuscular HGB CONC 33.1 g/dL (32.0-36.0); Mean Corpuscular Hemoglobin 28.9 pg (27.0-31.0); Mean Corpuscular Volume 87.1 fL (78.0-98.0); Mean Platelet Volume 8.3 fL (7.4-10.4); Platelet Count 434 thou/uL (130-400); RBC Distribution Width 11.7 % (11.5-14.5); Red Blood Cell (RBC) Count 4.55 mill/uL (4.70-6.10); White Blood Cell (WBC) Count 14.9 thou/uL (4.8-10.8)
[2019-01-23 06:22] LABS: Band 3 % (5-11); Eosinophils 3 % (0-10); Hypochromia SLIGHT = 6-15 cells (100X) (0-5/hpf); Lymphocytes 14 % (21-51); MDiff Complete? YES; Metamyelocyte 3 % (0-0); Monocytes 9 % (0-10); Myelocyte 1 % (0-0); Neutrophil 67 % (42-75); Platelet Morphology Comment Appears Increased
[2019-01-23] MEDS: Saccharomyces boulardii 250 MG CAP PO SCH (08:41)
[2019-01-23] MEDS: Acetaminophen 325 MG TAB PO PRN ×3 (08:41→20:53)
[2019-01-23] MEDS ORDERED: Neomycin-Polymyxin 1 ML AMP ONE (10:02)
[2019-01-23] MEDS ORDERED: Midazolam HCl 2 mg/2 ml Vial ONE (10:12)
[2019-01-23] MEDS ORDERED: HYDROmorphone 0.5 MG/0.5 ML SYRINGE ONE (10:12)
--- NOTE | 2019-01-23 11:04 | PRG ---
DATE OF SERVICE: 01/23/2019 SUBJECTIVE: Albino is a 33-year-old male, who is postop day 7 from incision, drainage, and washout of the left knee for a significant prepatellar septic bursitis. His white count has failed to appreciably improve, and today, it is still at 14.9. His original presentation was 16.1. He has had sequential wound VACs and dressing changes, and his erythema has resolved, and his pain is better, and his function has improved. However, there are still some concerns about the white count remaining elevated. PHYSICAL EXAMINATION: His knee still feels woody and still feels tense and firm to me. Range of motion is adequate and is nonprovocative and does not appear to be peritoneal. His swelling overall has improved, especially at the buttocks and lower leg, but the knee pericapsular region is still quite firm and tender. IMPRESSION: 1. Persistent prepatellar bursitis. 2. Leukocytosis. PLAN: In face of clinical examination and persistent white blood cell count, I think it would be most appropriate to take him back to surgery for reexploration. I have contacted Dr. Sheppard, who is here today and will be happy to perform the procedure, and I have also discussed the patient with Dr. Cohn via telephone, and we will proceed with reexploration today. Job ID: [id number]
[2019-01-23] MEDS ORDERED: Promethazine HCl 25 MG/ML VIAL IM PRN (11:07)
[2019-01-23] MEDS ORDERED: Promethazine HCl 25 MG/ML VIAL SLOW IVP PRN (11:07)
[2019-01-23] MEDS ORDERED: Ondansetron HCl/PF 4 MG/2 ML Vial IVP PRN (11:07)
[2019-01-23] MEDS ORDERED: HYDROmorphone 2 MG/ML VIAL SLOW IVP PRN (11:07)
[2019-01-23] MEDS ORDERED: PACU-Morphine 4MG/ML VIAL SLOW IVP PRN (11:07)
[2019-01-23] MEDS ORDERED: Fentanyl 100 MCG/2 ML VIAL ONE (11:30)
[2019-01-23] MEDS: Morphine 4 MG/ML VIAL SLOW IVP PRN (12:11)
--- NOTE | 2019-01-23 13:05 | PRG ---
DATE OF SERVICE: 01/23/2019 SUBJECTIVE: The patient is seen and examined at the bedside. He does not have much complaints to offer except for some pain he had before in this left knee area and left thigh. His appetite is good. OBJECTIVE: VITAL SIGNS: Blood pressure is 149/83, pulse is 77, respiratory rate is 18, O2 saturation is 98%, temperature is 98.3, and maximal temperature is 98.5. HEENT: His head is atraumatic and normocephalic. Eyes are PERRLA. Sclerae are nonicteric. Oral mucosa is moist. NECK: Supple. LUNGS: Clear. HEART: S1 and S2 normal. No S3. No S4. No any murmur. ABDOMEN: Soft, nontender, and nondistended. EXTREMITIES: Left knee area is wrapped. The skin is somewhat swollen. NEUROLOGICAL: He moves his all 4 extremities. There are no any motor deficits. DIAGNOSTIC DATA: Labs showed a white count of 14.9, hemoglobin 13.1, platelet count 434, and hematocrit is 39.7. MRI of the left lower extremity done yesterday showed very extensive persistent subcutaneous edema and cellulitis with multiple small poorly-defined fluid collections noted anteriorly over the superficial prepatellar and infrapatellar regions as well as laterally overlying the lateral patellar retinacular region with some evidence for some peripheral persistent myositis involving the vastus medialis and vastus lateralis muscles as well as superficial fasciitis. IMPRESSION: 1. Sepsis due to left knee prepatellar abscess with cellulitis positive for methicillin-resistant Staphylococcus aureus, status post drainage and recent MRI showed some additional areas of concern, so Ortho is reconsulted and the patient will be taken to the OR for further drainage and cleaning. 2. Hyponatremia, improved. 3. Anxiety, chronic, stable. 4. Obesity, chronic, stable. 5. Elevated LFTs, most likely related to his infection. PLAN: As I mentioned above, reconsulted with Ortho. Continue vancomycin treatment. Continue probiotic. Continue pain management with fentanyl, hydrocodone, and morphine p.r.n. as needed. Job ID: [id number]
--- NOTE | 2019-01-23 18:32 | PRG ---
DATE OF SERVICE: 01/23/2019 SUBJECTIVE: Mr. Zuñiga yesterday had an MRI and after discussions that I had with Dr. Mason and MRI showed some areas of still remaining inflammatory process with likely purulence, he went back to the OR and had more areas of debridement in the prepatellar region. He is back in the room. Now, he is feeling quite well, little bit disappointed with the protracted nature of this admission. No headaches. No visual symptoms. No dyspnea, cough, or sputum production. No chest pain. No abdominal pain. Left leg with less inflammation and less swelling. OBJECTIVE: VITAL SIGNS: Temperature is within normal limits. LUNGS: Clear. HEART: S1 and S2. Regular rate. EXTREMITIES: Left leg with the dressing, which was not removed. LABORATORY DATA: White cell count is down to 14.9; hemoglobin 13; platelets are at 434. Creatinine 0.71. AST 41, ALT 60, alkaline phosphatase 135. He is currently on vancomycin and his last trough level was 18.5. ASSESSMENT AND DISCUSSION: Prepatellar bursitis, extensive with residual areas of inflammatory process with purulence, status post a second I and D. Hopefully, now we are going to see a more rapid improvement to allow discharge planning possibly for Friday on oral regimen. Job ID: [id number] [facility]
[2019-01-23 19:52] LABS: Vancomycin, Trough 15.9 ug/mL
[2019-01-23] MEDS ORDERED: Dexamethasone 20 MG/5 ML VIAL ONE (23:06)
[2019-01-23] MEDS ORDERED: Ketorolac Tromethamine 30 MG/ML VIAL ONE (23:06)
[2019-01-23] MEDS ORDERED: Lidocaine 1% PF 5 ML VIAL ONE (23:06)
[2019-01-23] MEDS ORDERED: PROPOFOL 200 MG/20 ML VIAL ONE (23:06)
[2019-01-23] MEDS ORDERED: Ondansetron PF 4 MG/2 ML Vial ONE (23:06)
[2019-01-24] MEDS: Saccharomyces boulardii 250 MG CAP PO SCH (08:35)
[2019-01-24] MEDS: Acetaminophen 325 MG TAB PO PRN (08:40)
[2019-01-24] MEDS: HYDROcodone/Acetaminophen 10/325 mg Tablet PO PRN ×2 (17:43→22:13)
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
[2019-01-25] MEDS: HYDROcodone/Acetaminophen 10/325 mg Tablet PO PRN ×4 (04:25→20:05)
[2019-01-25 06:05] LABS: #Basophils 0.1 thou/uL (0.0-0.2); #Eosinphils 0.9 thou/uL (0.0-0.7); #Lymphocytes 2.6 thou/uL (1.20-3.40); #Monocytes 0.9 thou/uL (0.11-0.59); #Neutrophils 7.2 thou/uL (1.40-6.50); %Basophils 0.7 % (0.0-1.0); %Eosinophils 7.6 % (0.0-10.0); %Lymphocytes 22.3 % (21.0-51.0); %Monocytes 7.9 % (0.0-10.0); %Neutrophils 61.6 % (42.0-75.0); Hemoglobin 12.6 g/dL (14.0-18.0); Mean Corpuscular HGB CONC 32.1 g/dL (32.0-36.0); Mean Corpuscular Hemoglobin 28.1 pg (27.0-31.0); Mean Corpuscular Volume 87.7 fL (78.0-98.0); Mean Platelet Volume 8.7 fL (7.4-10.4); Platelet Count 405 thou/uL (130-400); RBC Distribution Width 11.9 % (11.5-14.5); Red Blood Cell (RBC) Count 4.47 mill/uL (4.70-6.10); White Blood Cell (WBC) Count 11.7 thou/uL (4.8-10.8)
[2019-01-25 06:33] LABS: ALT (SGPT) 122 U/L (8-55); AST (SGOT) 49 U/L (5-34); Albumin 3.4 g/dL (3.5-5.0); Alkaline Phosphatase 122 U/L (40-110); Anion Gap 12 mmol/L (10-20); BUN (Urea Nitrogen) 15 mg/dL (8.9-20.6); Bilirubin, Total 0.3 mg/dL (0.2-1.2); Calc. Creatinine Clearance 245 mL/min (70-130); Calcium 8.8 mg/dL (7.8-10.44); Carbon Dioxide 24 mmol/L (22-29); Chloride 103 mmol/L (98-107); Estimated GFR-MDRD Greater than 90; Globulin 3.7 g/dL (2.4-3.5); Glucose 89 mg/dL (70-105); Protein, Total 7.1 g/dL (6.0-8.3); Sodium 135 mmol/L (136-145)
[2019-01-25] MEDS: Saccharomyces boulardii 250 MG CAP PO SCH (08:34)
[2019-01-25] MEDS: Acetaminophen 325 MG TAB PO PRN (08:36)
[2019-01-25] MEDS: Morphine 4 MG/ML VIAL SLOW IVP PRN (11:51)
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
[2019-01-26] MEDS: HYDROcodone/Acetaminophen 10/325 mg Tablet PO PRN ×4 (04:40→23:49)
[2019-01-26 06:50] LABS: ALT (SGPT) 101 U/L (8-55); AST (SGOT) 37 U/L (5-34); Albumin 3.3 g/dL (3.5-5.0); Alkaline Phosphatase 113 U/L (40-110); Anion Gap 12 mmol/L (10-20); BUN (Urea Nitrogen) 13 mg/dL (8.9-20.6); Bilirubin, Total 0.3 mg/dL (0.2-1.2); Calc. Creatinine Clearance 239 mL/min (70-130); Carbon Dioxide 24 mmol/L (22-29); Chloride 103 mmol/L (98-107); Estimated GFR-MDRD Greater than 90; Globulin 3.6 g/dL (2.4-3.5); Glucose 96 mg/dL (70-105); Potassium 4.1 mmol/L (3.5-5.1); Protein, Total 6.9 g/dL (6.0-8.3); Sodium 135 mmol/L (136-145)
[2019-01-26 06:51] LABS: Band 3 % (5-11); Eosinophils 3 % (0-10); Hemoglobin 12.8 g/dL (14.0-18.0); Lymphocytes 19 % (21-51); MDiff Complete? YES; Mean Corpuscular Hemoglobin 28.9 pg (27.0-31.0); Mean Corpuscular Volume 87.6 fL (78.0-98.0); Mean Platelet Volume 8.4 fL (7.4-10.4); Metamyelocyte 1 % (0-0); Monocytes 11 % (0-10); Neutrophil 63 % (42-75); Platelet Count 360 thou/uL (130-400); Platelet Morphology Comment Appears Adequate; RBC Distribution Width 11.9 % (11.5-14.5); Red Blood Cell (RBC) Count 4.43 mill/uL (4.70-6.10); White Blood Cell (WBC) Count 13.1 thou/uL (4.8-10.8)
[2019-01-26] MEDS: Saccharomyces boulardii 250 MG CAP PO SCH (08:06)
[2019-01-26] MEDS: Morphine 4 MG/ML VIAL SLOW IVP PRN (12:19)
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
--- NOTE | 2019-01-26 14:25 | PRG ---
DATE OF SERVICE: 01/26/2019 SUBJECTIVE: The patient is feeling better. No headaches. No shortness of breath or abdominal pain. Voiding without difficulty. No diarrhea. OBJECTIVE: VITAL SIGNS: He has been afebrile. Other vital signs are essentially normal. LUNGS: Clear. HEART: S1 and S2 regular rate. ABDOMEN: Soft, not distended. EXTREMITIES: Right thigh, much suppler. Not tender at all. No erythema. Negative pressure dressing in the prepatellar region, and the calf is really nice, not swollen or erythematous. LABORATORY DATA: AST 37, ALT 101. White cell count 13.1, hemoglobin 12, platelets 360. ASSESSMENT AND DISCUSSION: Prepatellar bursitis, extensive, residual areas of inflammatory process, status post second incision and drainage, now I think he is ready to go home. Discharge planning on oral doxycycline and rifampin for 2 weeks. Continue wound care management. Job ID: [id number]
[2019-01-27] MEDS: HYDROcodone/Acetaminophen 10/325 mg Tablet PO PRN ×2 (04:49→08:25)
[2019-01-27 07:11] LABS: ALT (SGPT) 84 U/L (8-55); AST (SGOT) 28 U/L (5-34); Albumin 3.3 g/dL (3.5-5.0); Alkaline Phosphatase 113 U/L (40-110); Anion Gap 11 mmol/L (10-20); BUN (Urea Nitrogen) 6 mg/dL (8.9-20.6); Bilirubin, Total 0.3 mg/dL (0.2-1.2); Calc. Creatinine Clearance 198 mL/min (70-130); Carbon Dioxide 28 mmol/L (22-29); Chloride 103 mmol/L (98-107); Estimated GFR-MDRD Greater than 90; Globulin 3.6 g/dL (2.4-3.5); Glucose 101 mg/dL (70-105); Potassium 4.1 mmol/L (3.5-5.1); Protein, Total 6.9 g/dL (6.0-8.3); Sodium 138 mmol/L (136-145)
[2019-01-27] MEDS: Saccharomyces boulardii 250 MG CAP PO SCH (08:25)
--- NOTE | 2019-01-27 11:35 | PQF ---
CLINICAL DOCUMENTATION IMPROVEMENT CLARIFICATION FORM: ICD-10 Updated PLEASE DO AN ADDENDUM TO THE PROGRESS NOTE WITH ANY DOCUMENTATION UPDATES OR ADDITIONS AND CARRY THROUGH TO DC SUMMARY. THANK YOU. DATE: 01/27/2019 ATTN: Dr. Toro Please exercise your independent, professional judgment in responding to the clarification form. Clinical indicators are provided on the bottom of this form for your review Please check appropriate box(s) to clarify if the following diagnosis has been ruled in or ruled out: SEPSIS [ x ] Ruled in diagnosis [ ] Continue to treat [ x ] Resolved [ ] Ruled out diagnosis [ ] Cannot rule out diagnosis [ ] Other diagnosis [ ] Unable to determine In addition, please specify: Present on Admission (POA): [ x ] Yes [ ] No [ ] Unable to determine For continuity of documentation, please document condition throughout progress notes and discharge summary. Thank You. CLINICAL INDICATORS - SIGNS / SYMPTOMS / LABS / RESULTS AND LOCATION IN MR PN 01/23 ([place]) Sepsis due to left knee prepatellar abscess with cellulitis positive for MRSA, s/p drainage PN 01/18-01/20 ([place]) Sepsis due to L knee prepatellar abscess with cellulitis (MRSA +) H&P 01/15: VS: BP 141/86, HR 105-125 Lab: white blood cell ct is 24.5 C-reactive protein 26.28 RISKS: H&P 01/15: presents with cellulitis, and has failed outpatient treatment. Op Note 01/17: Prepatellar bursitis septic, left knee. TREATMENT: ID Consult 01/16 Order 01/16-01/22: Vancomycin HCL 2 gm IV MAR: Order 01/22: Vancomycin HCL 2 gm IV Thank you, Pamela (This form is maintained as a part of the permanent medical record) 2014 [employer]. All Rights Reserved Pamela Negron RN, BSN [email or web address] Office: [phone] [facility]
--- NOTE | 2019-01-27 13:53 | PDOC.EVN ---
Event Note - Event Note Event Note: Discharge summary dictated. #[id number]
[2019-01-27 14:24] VITALS: BP 137/87; TEMP 97.9
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
--- NOTE | 2019-01-28 13:40 | OP ---
DATE OF PROCEDURE: 01/23/2019 PREOPERATIVE DIAGNOSIS: Septic prepatellar bursa, left knee. POSTOPERATIVE DIAGNOSIS: Septic prepatellar bursa, left knee. PROCEDURE PERFORMED: Irrigation and debridement of left prepatellar bursa. ANESTHESIA: General. TOURNIQUET TIME: Zero. ESTIMATED BLOOD LOSS: 20 mL. DRAINS: None. SPECIMENS: None. COMPLICATIONS: None. OUTCOME: Decompressed prepatellar abscess. INDICATIONS: Mr. Zuñiga is a pleasant 33-year-old gentleman, status post incision and drainage for a septic prepatellar bursa approximately 1 week ago. The patient had some initial improvement with respect to the cellulitic skin response, but is still having a sensation of fullness around the prepatellar bursa with persistent soft tissue swelling. The patient has had a wound VAC in place. After discussion with the patient including risks and benefits, we decided to proceed with a repeat irrigation and debridement procedure of this left prepatellar bursa. Informed consent has been obtained, I believe all questions have been answered. DESCRIPTION OF PROCEDURE: The patient was brought to the operating room and a time-out performed followed by induction of general anesthesia. The patient was then positioned supine on the OR table and a sterile prep and drape was performed of the left lower extremity after the wound VAC was removed. The patient was found to have 2 small segments of white foam from the wound VAC. They were just tucked under the skin edges medially and laterally, but really did not advance into the gutters of the prepatellar bursa. Once the wound VAC was removed and the sterile prep and drape performed, the previous skin incision was increased in length proximally and distally and then a finger was used to sweep the entire prepatellar bursa. There was found to be a pocket of purulence remaining in the lateral gutter of the bursa, that was not being decompressed by the wound VAC. Following full opening of the entire prepatellar bursa, curette was used to remove some of the necrotic bursal lining. Next, 3 L of normal saline using Pulsavac was irrigated thoroughly through the prepatellar bursa. At the completion of this, a Kerlix roll soaked in saline was packed in the entire bursa followed by a gauze and Ajx wrap dressing. The patient was then transferred to recovery room in stable condition. There were no complications. He tolerated the procedure well. Job ID: [id number]
== END 2019-01-27 15:33 | disposition home or self-care (01) | DRG 854 ==
LOC: ERS 16:42 → T4-A 18:30
PROVIDERS: ADMIT Internal Medicine; ATTEND Internal Medicine
PROC: 0MBP0ZZ Excision of Left Knee Bursa and Ligament, Open Approach (ICD-10-PCS; principal; 2019-01-17)
PROC: 0M9P0ZZ Drainage of Left Knee Bursa and Ligament, Open Approach (ICD-10-PCS; 2019-01-17)
DX: A41.02 Sepsis due to Methicillin resistant Staphylococcus aureus (principal); L03.116 Cellulitis of left lower limb; E87.1 Hypo-osmolality and hyponatremia; M71.062 Abscess of bursa, left knee; B95.62 Methicillin resistant Staphylococcus aureus infection as the cause of diseases classified elsewhere; R03.0 Elevated blood-pressure reading, without diagnosis of hypertension; M72.9 Fibroblastic disorder, unspecified; E66.9 Obesity, unspecified; F41.9 Anxiety disorder, unspecified; Z68.34 Body mass index [BMI] 34.0-34.9, adult; Z79.899 Other long term (current) drug therapy
CPT/HCPCS: 36415; 80048; 80053; 80202; 82550; 83605; 85025; 85652; 86140; 87040; 87070; 87077; 87186; 87205; 90471; 90686; 96361; 96365; 96367; 96375; G0008; J1100; J1170; J1650; J1885; J2001; J2250; J2270; J2405; J2543; J2704; J3010; J3370; J3490; J7050; Q9966

== ENCOUNTER 2019-01-29 14:33 | Outpatient (CLI) | payer OTHER ==
[~2019-01-29 14:33] MED LIST changes: -ISOVUE-370 76%-LOCM 1 ML ONE; +Lidocaine 4% Topical Sol 50 ML BOT ONE; +Sodium Chloride 0.9% 15 ML NEB ONE
== END 2019-01-29 14:34 | disposition home or self-care (01) ==
LOC: WCC 14:33
PROVIDERS: ATTEND Family Medicine
DX: T81.89XD Other complications of procedures, not elsewhere classified, subsequent encounter (principal)
CPT/HCPCS: 97605; A4218

== ENCOUNTER 2019-02-02 07:57 | Outpatient (CLI) | payer OTHER ==
[2019-02-02] MEDS ORDERED: Sodium Chloride 0.9% 15 ML NEB ONE (18:00)
== END 2019-02-02 07:58 | disposition home or self-care (01) ==
LOC: WCC 07:57
PROVIDERS: ATTEND Family Medicine
DX: T81.89XD Other complications of procedures, not elsewhere classified, subsequent encounter (principal)
CPT/HCPCS: A4218

== ENCOUNTER 2019-02-05 08:00 | Outpatient (CLI) | payer OTHER ==
[2019-02-05] MEDS ORDERED: Sodium Chloride 0.9% 15 ML NEB ONE (10:00)
== END 2019-02-05 08:01 | disposition home or self-care (01) ==
LOC: WCC 08:00
PROVIDERS: ATTEND Family Medicine
DX: T81.89XD Other complications of procedures, not elsewhere classified, subsequent encounter (principal)
CPT/HCPCS: 97605; A4218

== ENCOUNTER 2019-02-08 13:44 | Outpatient (CLI) | payer OTHER ==
--- NOTE | 2019-02-08 16:03 | HP ---
HISTORY OF PRESENT ILLNESS: Mr. Albino Zuñiga is a very pleasant 33-year-old gentleman, who presents to the Wound Center for evaluation of a wound of the left knee subsequent to repeat irrigation and debridement of the left prepatellar bursa on 01/23/2019. Previously, the patient had undergone irrigation and debridement of the left prepatellar bursa on 01/17/2019. The patient is presently receiving negative pressure therapy with dressing changes of the wound VAC here in the Wound Center. The patient states he has a followup appointment with Orthopedic Surgery in 2 days. The patient has no complaints today. He denies any fever or chills. PAST MEDICAL HISTORY: Negative for any chronic medical conditions including diabetes mellitus, hypertension, or coronary artery disease. PAST SURGICAL HISTORY: 1. Left ankle surgery in 2005 after football injury in [place], [place]. 2. Surgery for hydrocele. 3. Tonsillectomy. 4. Irrigation and debridement of left septic prepatellar bursa, 01/17/2019. 5. Repeat irrigation and debridement of left prepatellar bursa, 01/23/2019. MEDICATIONS: 1. Sertraline. 2. Doxycycline. 3. Rifampin. 4. Hydrocodone. 5. Tramadol. ALLERGIES: NO KNOWN DIAGNOSED ALLERGIES. SOCIAL HISTORY: Negative for tobacco or EtOH use. FAMILY HISTORY: Negative for diabetes mellitus or coronary artery disease. PHYSICAL EXAMINATION: VITAL SIGNS: Temperature 97.8, pulse 88, respirations 19, and blood pressure 142/83. GENERAL: A 33-year-old gentleman sitting on table in examination room, in no acute distress. HEENT: Normocephalic, atraumatic. NECK: No nuchal rigidity. CHEST: Clear to auscultation. CARDIOVASCULAR: Regular rate and rhythm. ABDOMEN: Soft. EXTREMITIES: A wound of the left knee is present, which measures approximately 5.0 x 4.0 cm. Granulation tissue is present within the wound margins. No purulent drainage is associated with the wound. No erythema of the skin surrounding the wound is present. No maceration of the skin of the periwound is noted. NEUROLOGIC: Grossly nonfocal. ASSESSMENT AND PLAN: Wound of left knee as described above. Negative pressure therapy will be continued with dressing changes of the wound VAC here in the Wound Center. The patient states he has a followup appointment with Orthopedic Surgery in 2 days. I will see Mr. Zuñiga again in 1 week. The patient understands and is in agreement with the preceding treatment plan. The patient states he will continue doxycycline and rifampin as prescribed by Infectious Diseases. The patient was seen in consultation by Infectious Diseases during his hospital stay. Job ID: [id number]
== END 2019-02-08 13:45 | disposition home or self-care (01) ==
LOC: WCC 13:44
PROVIDERS: ATTEND Family Medicine
DX: T81.89XD Other complications of procedures, not elsewhere classified, subsequent encounter (principal)

== ENCOUNTER 2019-12-16 07:28 | Emergency (ER) | payer OTHER ==
[2019-12-16] MEDS ORDERED: Lidocaine 1% w/Epinephrine 1:100K 20 ML VIAL ONE (07:45)
[2019-12-16] MEDS ORDERED: Bacitracin 1 PK ONE (08:51)
== END 2019-12-16 08:57 | disposition home or self-care (01) ==
LOC: ERS 07:28
DX: S51.811A Laceration without foreign body of right forearm, initial encounter (principal); I10 Essential (primary) hypertension; F41.9 Anxiety disorder, unspecified; F32.9 Major depressive disorder, single episode, unspecified; F43.10 Post-traumatic stress disorder, unspecified; Z79.899 Other long term (current) drug therapy; W22.8XXA Striking against or struck by other objects, initial encounter
CPT/HCPCS: 12002

== ENCOUNTER 2020-02-09 18:45 | Observation (INO) | payer OTHER ==
[2020-02-09] MEDS ORDERED: Boostrix 0.5 ML (Tdap) VIAL ONE (19:19)
[2020-02-09 19:25] LABS: #Basophils 0.1 thou/uL (0.0-0.2); #Eosinphils 0.2 thou/uL (0.0-0.7); #Monocytes 0.6 thou/uL (0.11-0.59); #Neutrophils 5.3 thou/uL (1.40-6.50); %Eosinophils 1.8 % (0.0-10.0); %Lymphocytes 24.7 % (21.0-51.0); %Monocytes 7.6 % (0.0-10.0); %Neutrophils 64.8 % (42.0-75.0); Hemoglobin 16.2 g/dL (14.0-18.0); Mean Corpuscular HGB CONC 33.3 g/dL (32.0-36.0); Mean Corpuscular Hemoglobin 29.3 pg (27.0-31.0); Mean Corpuscular Volume 87.8 fL (78.0-98.0); Platelet Count 290 thou/uL (130-400); RBC Distribution Width 11.8 % (11.5-14.5); Red Blood Cell (RBC) Count 5.53 mill/uL (4.70-6.10); White Blood Cell (WBC) Count 8.1 thou/uL (4.8-10.8)
[2020-02-09 19:35] LABS: INR-International Normal Ratio 0.9; PTT 29.7 sec (22.9-36.1); Prothrombin Time 12.6 sec (12.0-14.7)
[2020-02-09 19:42] LABS: CK (CPK) 214 U/L (30-200); CRP (Inflammatory) Less than 0.50 mg/dL (= or < 0.5)
[2020-02-09 19:43] LABS: ALT (SGPT) 26 U/L (8-55); AST (SGOT) 26 U/L (5-34); Albumin 4.2 g/dL (3.5-5.0); Alkaline Phosphatase 89 U/L (40-110); Anion Gap 12 mmol/L (10-20); BUN (Urea Nitrogen) 10 mg/dL (8.9-20.6); Bilirubin, Total 0.7 mg/dL (0.2-1.2); Calc. Creatinine Clearance 0 mL/min (70-130); Calcium 9.5 mg/dL (7.8-10.44); Carbon Dioxide 29 mmol/L (22-29); Chloride 103 mmol/L (98-107); Estimated GFR-MDRD Greater than 90; Globulin 2.9 g/dL (2.4-3.5); Glucose 98 mg/dL (70-105); Potassium 3.6 mmol/L (3.5-5.1); Protein, Total 7.1 g/dL (6.0-8.3); Sodium 140 mmol/L (136-145)
[2020-02-09] MEDS ORDERED: Crotalidae Polyvlnt Antivenin 4 GM in Sodium Chloride 0.9% 250 ML 250 ML IVPB SCH (19:45)
[2020-02-09] MEDS ORDERED: Morphine 4 MG/ML VIAL ONE ×2 (20:29→23:46)
[2020-02-09] MEDS ORDERED: Ondansetron PF 4 MG/2 ML Vial ONE (20:30)
[2020-02-09] MEDS ORDERED: Ketorolac Tromethamine 30 MG/ML VIAL ONE ×2 (22:10→23:46)
[2020-02-10 01:25] LABS: #Basophils 0.1 thou/uL (0.0-0.2); #Eosinphils 0.2 thou/uL (0.0-0.7); #Lymphocytes 2.9 thou/uL (1.20-3.40); #Monocytes 1.2 thou/uL (0.11-0.59); #Neutrophils 9.7 thou/uL (1.40-6.50); %Basophils 0.5 % (0.0-1.0); %Eosinophils 1.6 % (0.0-10.0); %Lymphocytes 20.3 % (21.0-51.0); %Monocytes 8.2 % (0.0-10.0); %Neutrophils 69.5 % (42.0-75.0); Hemoglobin 15.1 g/dL (14.0-18.0); Mean Corpuscular HGB CONC 32.7 g/dL (32.0-36.0); Mean Corpuscular Volume 88.7 fL (78.0-98.0); Platelet Count 251 thou/uL (130-400); RBC Distribution Width 11.7 % (11.5-14.5); Red Blood Cell (RBC) Count 5.21 mill/uL (4.70-6.10)
[2020-02-10 01:35] LABS: PTT 29.4 sec (22.9-36.1); Prothrombin Time 13.1 sec (12.0-14.7)
--- NOTE | 2020-02-10 02:06 | HP ---
REASON FOR ADMISSION: Snake bite. HISTORY OF PRESENT ILLNESS: This is a 34-year-old male patient who was bit by a snake more than twice maybe three times tonight, subsequently started having swelling of his left foot, also did report pain and numbness. He thinks that the snake was a copperhead. Upon his arrival to the ER, he received CroFab and currently the swelling has been slowed significantly, but still some is occurring mainly in the lateral side of his leg. He will receive a second dose of CroFab. PAST MEDICAL HISTORY: The patient reports past medical history of, 1. High blood pressure. 2. Anxiety. 3. Depression. 4. PTSD. PAST SURGICAL HISTORY: 1. Fibular fracture. 2. Tonsillectomy. SOCIAL HISTORY: He does not smoke. Does not drink alcohol. REVIEW OF SYSTEMS: All systems reviewed except the above mentioned, found to be negative. FAMILY HISTORY: Negative for premature coronary artery disease. PHYSICAL EXAMINATION: GENERAL: He is awake, alert, oriented, does not appear in distress. VITAL SIGNS: His blood pressure is 117/64, heart rate of 61, temperature is 98.1, saturating 100% on room air. HEENT: Head is nontraumatic, normocephalic. Pupils equally reactive. Extraocular movements are intact. Nonicteric sclerae. Well injected conjunctivae. Oral mucosa normal. Nasal mucosa normal. NECK: Supple. No adenopathy. No murmur. Thyroid is not palpable. Trachea is midline. No supraclavicular adenopathy. HEART: S1, S2 regular. No murmur. No gallops. No friction rubs. No displacement of PMI. LUNGS: Clear to auscultation bilaterally. No wheezes, rhonchi, or crackles. ABDOMEN: Bowel sounds are positive. Nontender abdomen. No hepatosplenomegaly. EXTREMITIES: He does have left lower extremity swelling extending from the foot up to his above the ankle area and some erythema and some decreased sensation around that area. NEURO: Cranial nerves II through XII within normal limits. Normal motor function. Normal sensory function. Normal reflexes. LABORATORY DATA: Blood work shows WBC of 14, hemoglobin 15.1, platelets of 251. Initial coagulation studies shows INR 0.9, PTT of 29.7, sodium of 140, potassium 3.6, BUN 10, creatinine 0.89. CK of 214. ASSESSMENT/PLAN: This is a 34-year-old male patient presenting after having multiple snake bites to his left foot. The snake was confirmed to be copperhead. He did receive CroFab as per our protocol, will receive a 2nd dose. We will continue to monitor his blood work as per our protocol. We will provide him with pain control and Benadryl on as needed basis. Job ID: [id number]
[2020-02-10] MEDS ORDERED: Ketorolac Tromethamine 30 MG/ML VIAL ONE (02:20)
[2020-02-10] MEDS: Ketorolac Tromethamine 30 MG/ML VIAL IVP PRN ×2 (02:27→11:46)
[2020-02-10] MEDS ORDERED: Crotalidae Polyvlnt Antivenin 2 GM in Sodium Chloride 0.9% 250 ML 250 ML IVPB SCH (02:30)
[2020-02-10 04:01] VITALS: BMI 33.3
[2020-02-10 07:08] LABS: #Basophils 0.1 thou/uL (0.0-0.2); #Eosinphils 0.3 thou/uL (0.0-0.7); #Lymphocytes 1.7 thou/uL (1.20-3.40); #Neutrophils 13.1 thou/uL (1.40-6.50); %Basophils 0.6 % (0.0-1.0); %Eosinophils 1.8 % (0.0-10.0); %Lymphocytes 10.7 % (21.0-51.0); %Monocytes 6.2 % (0.0-10.0); %Neutrophils 80.8 % (42.0-75.0); Mean Corpuscular HGB CONC 33.7 g/dL (32.0-36.0); Mean Corpuscular Hemoglobin 29.6 pg (27.0-31.0); Mean Corpuscular Volume 88.1 fL (78.0-98.0); Mean Platelet Volume 10.2 fL (7.4-10.4); Platelet Count 227 thou/uL (130-400); RBC Distribution Width 11.8 % (11.5-14.5); Red Blood Cell (RBC) Count 5.05 mill/uL (4.70-6.10); White Blood Cell (WBC) Count 16.2 thou/uL (4.8-10.8)
[2020-02-10 07:09] LABS: Prothrombin Time 12.9 sec (12.0-14.7)
[2020-02-10 07:10] LABS: PTT 28.9 sec (22.9-36.1)
[2020-02-10 09:12] VITALS: TEMP 98.8
[2020-02-10 13:12] LABS: #Basophils 0.1 thou/uL (0.0-0.2); #Eosinphils 0.3 thou/uL (0.0-0.7); #Lymphocytes 1.1 thou/uL (1.20-3.40); #Monocytes 1.3 thou/uL (0.11-0.59); #Neutrophils 9.9 thou/uL (1.40-6.50); %Basophils 0.4 % (0.0-1.0); %Lymphocytes 8.9 % (21.0-51.0); %Monocytes 10.3 % (0.0-10.0); %Neutrophils 78.4 % (42.0-75.0); Hemoglobin 14.2 g/dL (14.0-18.0); Mean Corpuscular HGB CONC 33.8 g/dL (32.0-36.0); Mean Corpuscular Hemoglobin 29.5 pg (27.0-31.0); Mean Corpuscular Volume 87.4 fL (78.0-98.0); Mean Platelet Volume 10.1 fL (7.4-10.4); Platelet Count 215 thou/uL (130-400); RBC Distribution Width 11.6 % (11.5-14.5); Red Blood Cell (RBC) Count 4.81 mill/uL (4.70-6.10); White Blood Cell (WBC) Count 12.6 thou/uL (4.8-10.8)
[2020-02-10 13:15] LABS: PTT 29.7 sec (22.9-36.1); Prothrombin Time 13.5 sec (12.0-14.7)
[2020-02-10 14:55] LABS: SARS-CoV-2 MS2 Positive; SARS-CoV-2 N Gene Negative; SARS-CoV-2 S Gene Negative; SARS-CoV-2 by NAA Not Detected (NotDetected); SARS-CoV-2 orf1ab Negative
[2020-02-10 16:07] VITALS: BP 131/70
--- NOTE | 2020-02-11 00:58 | DIS ---
DATE OF ADMISSION: 02/09/2020 DATE OF DISCHARGE: 02/10/2020 PRIMARY CARE PHYSICIAN: Dr. Fitzpatrick. REASON FOR ADMISSION: Snake bite. DIAGNOSES AT DISCHARGE: 1. Copperhead snake bite with envenomation. 2. Hypertension. PROCEDURES: None. CONSULTATIONS: None. SUMMARY OF HOSPITAL COURSE: This is a 34-year-old white male with a history of hypertension, who was bitten by a copperhead snake on his left foot multiple times, had pain and numbness to the area. In the ER, he was given CroFab due to swelling and redness. He had progression of the swelling into the lateral side of his left leg, passed his ankle onto the leg and so he was given a 2nd dose of CroFab early this morning around 2:00 a.m. Since then, the patient has had decreased swelling and redness of the leg, is coke still cleaner to step on, but has markedly improved than when he came in. We have watched him over the course of the day and has seen continued marked improvement and so he is being discharged home. I did examine him before discharge. His cardiovascular exam and pulmonary exam were normal. He had good pulses into the foot. Good cap refill. He did have a little bit of bruising over the distal top of the foot that is stable from this morning and the swelling has improved. He has good sensation to the tips of the toes as well and is able to ambulate on it. There was some discomfort due to the swelling. DISCHARGE MANAGEMENT: Discharged home. ACTIVITY: As tolerated. He is to stay off work until the swelling goes down enough that he can fit a normal shoe on, in likely the next 3 to 7 days. DIET: Regular diet. FOLLOWUP: Follow up with Dr. Fitzpatrick in 7 days if not resolved. DISCHARGE MEDICATIONS: Continue sertraline 50 mg daily. Job ID: [id number]
== END 2020-02-10 16:05 | disposition home or self-care (01) ==
LOC: ERS 18:45 → ERHOLD 20:53 → 2NO 02-10 04:12
PROVIDERS: ADMIT Internal Medicine; ATTEND Emergency Medicine
DX: T63.061A Toxic effect of venom of other North and South American snake, accidental (unintentional), initial encounter (principal); M79.89 Other specified soft tissue disorders; I10 Essential (primary) hypertension; F41.9 Anxiety disorder, unspecified; F32.9 Major depressive disorder, single episode, unspecified; F43.10 Post-traumatic stress disorder, unspecified; Z79.899 Other long term (current) drug therapy; Z20.828 Contact with and (suspected) exposure to other viral communicable diseases
CPT/HCPCS: 36415; 80053; 82550; 85025; 85384; 85610; 85652; 85730; 86140; 87635; 90715; 96365; 96375; G0378; J0840; J1885; J2270; J2405; J7050; U0003

== ENCOUNTER 2020-09-10 00:25 | Emergency (ER) | payer OTHER ==
[2020-09-10] MEDS ORDERED: Cefepime 1 GM VIAL ONE (03:20)
[2020-09-10] MEDS ORDERED: Vancomycin 1 GM/200 ML BAG ONE (04:18)
[2020-09-10] MEDS ORDERED: Ondansetron PF 4 MG/2 ML Vial IVP PRN (04:45)
[2020-09-10] MEDS ORDERED: Dextrose 5% in Water 1,000 ML IV PRN (04:45)
[2020-09-10] MEDS ORDERED: Dextrose 50% Abboject 50 ML SYRINGE SLOW IVP PRN (04:45)
[2020-09-10] MEDS ORDERED: traMADol HCl 50 MG TAB PO PRN (04:49)
[2020-09-10] MEDS ORDERED: Acetaminophen 325 MG TAB PO SCH ×2 (05:00→14:00)
[2020-09-10] MEDS ORDERED: Acetaminophen 500 MG TAB PO SCH (06:45)
[2020-09-10 06:46] LABS: SARS-CoV-2 NAA Rapid Test Not Detected (NotDetected)
[2020-09-10] MEDS ORDERED: Morphine 4 MG/ML VIAL ONE (06:47)
[2020-09-10] MEDS ORDERED: Ondansetron PF 4 MG/2 ML Vial ONE (06:47)
[2020-09-10] MEDS ORDERED: Bacitracin 1 PK ONE (07:56)
[2020-09-10] MEDS ORDERED: Famotidine 20 MG TAB PO SCH (09:00)
[2020-09-10] MEDS ORDERED: Ibuprofen 600 MG TAB PO SCH (14:00)
[2020-09-10] MEDS ORDERED: Ibuprofen 200 MG TAB PO SCH (14:00)
== END 2020-09-10 08:20 | disposition home or self-care (01) ==
LOC: ERS 00:25
DX: S81.012A Laceration without foreign body, left knee, initial encounter (principal); S16.1XXA Strain of muscle, fascia and tendon at neck level, initial encounter; I10 Essential (primary) hypertension; Z79.899 Other long term (current) drug therapy; W01.10XA Fall on same level from slipping, tripping and stumbling with subsequent striking against unspecified object, initial encounter
CPT/HCPCS: 12002; 72125; 96365; 96366; 96367; 96375; J0692; J2270; J2405; J3370; U0002; U0005

== ENCOUNTER 2022-01-10 16:08 | Emergency (ER) | payer BC ==
[2022-01-10 16:35] LABS: #Basophils 0.1 thou/uL (0.0-0.2); #Eosinphils 0.5 thou/uL (0.0-0.7); #Lymphocytes 2.1 thou/uL (1.20-3.40); #Neutrophils 6.1 thou/uL (1.40-6.50); %Basophils 0.7 % (0.0-1.0); %Eosinophils 4.9 % (0.0-10.0); %Lymphocytes 21.1 % (21.0-51.0); %Monocytes 10.6 % (0.0-10.0); %Neutrophils 62.7 % (42.0-75.0); Hemoglobin 16.1 g/dL (14.0-18.0); Mean Corpuscular HGB CONC 33.4 g/dL (32.0-36.0); Mean Corpuscular Hemoglobin 28.9 pg (27.0-31.0); Mean Corpuscular Volume 86.6 fL (78.0-98.0); Mean Platelet Volume 9.9 fL (7.4-10.4); Platelet Count 248 thou/uL (130-400); RBC Distribution Width 11.7 % (11.5-14.5); Red Blood Cell (RBC) Count 5.55 mill/uL (4.70-6.10); White Blood Cell (WBC) Count 9.8 thou/uL (4.8-10.8)
[2022-01-10 17:01] LABS: ALT (SGPT) 27 U/L (8-55); AST (SGOT) 20 U/L (5-34); Albumin 4.4 g/dL (3.5-5.0); Alkaline Phosphatase 98 U/L (40-110); Anion Gap 12 mmol/L (10-20); BUN (Urea Nitrogen) 10 mg/dL (8.9-20.6); Bilirubin, Total 0.5 mg/dL (0.2-1.2); Calc. Creatinine Clearance 0 mL/min (70-130); Calcium 9.3 mg/dL (7.8-10.44); Carbon Dioxide 26 mmol/L (22-29); Chloride 105 mmol/L (98-107); Estimated GFR 114; Globulin 3.3 g/dL (2.4-3.5); Glucose 87 mg/dL (70-105); Potassium 3.9 mmol/L (3.5-5.1); Protein, Total 7.7 g/dL (6.0-8.3); Sodium 139 mmol/L (136-145)
== END 2022-01-10 16:30 | disposition home or self-care (01) ==
LOC: ERS 16:08
DX: Z00.00 Encounter for general adult medical examination without abnormal findings (principal); I10 Essential (primary) hypertension; Z79.899 Other long term (current) drug therapy
CPT/HCPCS: 80048; 80053; 85025; 93005

== ENCOUNTER 2022-07-27 13:14 | Emergency (ER) | payer BC, OTHER ==
[2022-07-27] MEDS ORDERED: Dicyclomine 20 MG/2 ML VIAL ONE (15:35)
[2022-07-27] MEDS ORDERED: Ondansetron ODT 4 MG TAB ONE (15:35)
[2022-07-27 16:26] LABS: #Eosinphils 0.1 thou/uL (0.0-0.7); #Neutrophils 4.9 thou/uL (1.40-6.50); %Basophils 0.3 % (0.0-1.0); %Eosinophils 1.8 % (0.0-10.0); %Lymphocytes 14.4 % (21.0-51.0); %Monocytes 13.7 % (0.0-10.0); %Neutrophils 69.8 % (42.0-75.0); Hemoglobin 15.4 g/dL (14.0-18.0); Mean Corpuscular Hemoglobin 30.4 pg (27.0-31.0); Mean Corpuscular Volume 86.7 fl (78.0-98.0); Mean Platelet Volume 10.3 fL (7.4-10.4); Platelet Count 186 10x3/uL (130-400); RBC Distribution Width 12.2 % (11.5-14.5); Red Blood Cell (RBC) Count 5.09 mill/uL (4.70-6.10)
[2022-07-27 16:44] LABS: ALT (SGPT) 28 U/L (8-55); AST (SGOT) 24 U/L (5-34); Albumin 4.4 g/dL (3.5-5.0); Alkaline Phosphatase 99 U/L (40-110); Anion Gap 12 mmol/L (10-20); BUN (Urea Nitrogen) 9 mg/dL (8.9-20.6); Bilirubin, Total 0.6 mg/dL (0.2-1.2); Calc. Creatinine Clearance 0 mL/min (70-130); Calcium 9.4 mg/dL (7.8-10.44); Carbon Dioxide 24 mmol/L (22-29); Chloride 105 mmol/L (98-107); Estimated GFR 104; Globulin 3.2 g/dL (2.4-3.5); Glucose 90 mg/dL (70-105); Potassium 3.8 mmol/L (3.5-5.1); Protein, Total 7.6 g/dL (6.0-8.3); Sodium 137 mmol/L (136-145)
[2022-07-27 16:51] LABS: SARS-CoV-2 NAA Rapid Test Not Detected (NotDetected)
== END 2022-07-27 18:15 | disposition home or self-care (01) ==
LOC: ERS 13:14
DX: R19.7 Diarrhea, unspecified (principal); I10 Essential (primary) hypertension; Z79.899 Other long term (current) drug therapy
CPT/HCPCS: 36415; 80053; 85025; 96372; 99284; Q0162

== ENCOUNTER 2024-03-11 22:12 | Emergency (ER) | payer BC ==
[2024-03-11] MEDS ORDERED: Ondansetron PF 4 MG/2 ML Vial ONE (22:57)
[2024-03-11] MEDS ORDERED: methylPREDNISolone Sod Succ/PF 125 MG/2 ML VIAL ONE (22:57)
[2024-03-11 23:04] LABS: #Basophils 0.03 10x3/uL (0.0-0.2); %Basophils 0.4 % (0.0-1.0); %Eosinophils 0.5 % (0.0-10.0); %Monocytes 5.8 % (0.0-10.0); %Neutrophils 81.1 % (42.0-75.0); Hematocrit 43.9 % (42.0-52.0); Hemoglobin 14.7 g/dL (14.0-18.0); Mean Corpuscular HGB CONC 33.5 g/dL (32.0-36.0); Mean Corpuscular Hemoglobin 27.8 pg (27.0-31.0); Mean Platelet Volume 11.3 fL (7.4-10.4); Platelet Count 259 10x3/uL (130-400); RBC Distribution Width 12.8 % (11.5-14.5); Red Blood Cell (RBC) Count 5.29 mill/uL (4.70-6.10)
[2024-03-11 23:18] LABS: Magnesium 1.8 mg/dL (1.6-2.6); Prothrombin Time 13.2 sec (12.0-14.7)
[2024-03-11 23:19] LABS: Acetaminophen Less than 10 mcg/mL (Less than 10); Alcohol Less than 10.0 mg/dL (Less than 10); Salicylate Less than 8.0 mg/dL (Less than 8.0)
[2024-03-11 23:20] LABS: ALT (SGPT) 63 U/L (8-55); AST (SGOT) 33 U/L (5-34); Albumin 3.8 g/dL (3.5-5.0); Alkaline Phosphatase 116 U/L (40-110); Anion Gap 15 mmol/L (10-20); BUN (Urea Nitrogen) 8 mg/dL (8.9-20.6); Bilirubin, Total 0.3 mg/dL (0.2-1.2); Calc. Creatinine Clearance 0 mL/min (70-130); Calcium 8.7 mg/dL (7.8-10.44); Carbon Dioxide 23 mmol/L (22-29); Chloride 107 mmol/L (98-107); Estimated GFR 100; Glucose 103 mg/dL (70-105); Potassium 3.8 mmol/L (3.5-5.1); Protein, Total 6.8 g/dL (6.0-8.3); Sodium 141 mmol/L (136-145)
== END 2024-03-12 03:30 | disposition home or self-care (01) ==
LOC: ERS 22:12
DX: R51.9 Headache, unspecified (principal); I10 Essential (primary) hypertension; Z79.899 Other long term (current) drug therapy
CPT/HCPCS: 36415; 70450; 80053; 80307; 83735; 85025; 85610; 85730; 87428; 96361; 96374; 96375; J2405; J2919